=== PATIENT | female | born 1995 | race Caucasian/White ===

== ENCOUNTER → 2017-06-17 | Outpatient (CLI) | payer OTHER | END | disposition home or self-care (01) | LOC: C.LABSPEC 16:01 | PROVIDERS: ATTEND Physician Assistant | DX: Z01.419 Encounter for gynecological examination (general) (routine) without abnormal findings (principal) ==

== ENCOUNTER → 2017-06-17 | Outpatient (CLI) | payer OTHER | END | disposition home or self-care (01) | LOC: C.PAPS 16:39 | PROVIDERS: ATTEND Physician Assistant | DX: Z12.4 Encounter for screening for malignant neoplasm of cervix (principal); R87.615 Unsatisfactory cytologic smear of cervix ==

== ENCOUNTER 2022-08-04 21:19 | Inpatient (IN) ==
[2022-08-04] MEDS ORDERED: LIDOCAINE 1% LOCAL 20 ML VIAL INFIL PRN (21:52)
[2022-08-04] MEDS ORDERED: OXYTOCIN 30 UNITS/500 ML BAG IV PRN (21:52)
[2022-08-04 22:36] LABS: Hematocrit (blood only) 38.3 % (37.0-47.0); Hemoglobin 13.3 g/dl (12.0-16.0); Mean Corpuscular Hemoglobin 31.4 pg (25.0-34.0); Mean Corpuscular Hgb Conc 34.7 g/dL (32.0-36.0); Mean Corpuscular Volume 90.3 fL (80.0-100.0); Mean Platelet Volume 10.8 fL (9.4-12.4); Platelet Count 157 K/uL (130-400); RDW Standard Deviation 42.4 fL (36.4-46.3); Red Blood Count 4.24 M/uL (4.20-5.40); White Blood Count 11.42 K/ul (4.8-10.8)
[2022-08-05] MEDS: LACTATED RINGER'S 1,000 ML IV PRN ×2 (01:27→04:06)
[2022-08-05] MEDS ORDERED: BUPIVACAINE 0.25% PF 30 ML VIAL ONE (01:30)
[2022-08-05] MEDS ORDERED: ePHEDrine sulfate 50 MG/ML AMP ONE (01:30)
[2022-08-05] MEDS ORDERED: SODIUM CHLORIDE 0.9% PF INJ 10 ML VIAL ONE (01:30)
[2022-08-05] MEDS ORDERED: fentaNYL citrate PF 100 MCG/2 ML VIAL ONE (01:30)
[2022-08-05] MEDS ORDERED: LIDOCAINE 2%/EPINEPHRINE 1:200,000 20 ML PF ONE (01:31)
[2022-08-05] MEDS ORDERED: fentaNYL 2MCG/ML ROPIVACAINE 1.25MG/ML 100 ML BAG EPI ONE (01:31)
[2022-08-05] MEDS ORDERED: NALOXONE HCL 1 MG in SODIUM CHLORIDE 0.9% 1000ML 1,000 ML IV PRN (01:47)
[2022-08-05] MEDS ORDERED: NALOXONE HCL 0.4 MG/1 ML VIAL/CARP IV PRN (01:47)
[2022-08-05] MEDS ORDERED: ePHEDrine sulfate 50 MG/ML AMP IV PRN (01:47)
[2022-08-05] MEDS ORDERED: diphenhydrAMINE 50 MG/ML VIAL IV PRN (01:47)
[2022-08-05] MEDS ORDERED: NALBUPHINE HCL INJ 10 MG/ML AMP IV PRN (01:47)
[2022-08-05] MEDS ORDERED: ONDANSETRON INJ 2 MG/ML 2 ML VIAL IV PRN (01:47)
[2022-08-05] MEDS ORDERED: fentaNYL 2MCG/ML ROPIVACAINE 1.25MG/ML 100 ML BAG EPI PRN (01:47)
--- NOTE | 2022-08-05 01:47 | Anesthesiology Consultation ---
Date of Service August 05, 2022 Assessment & Plan ASA ASA2 Proposed Anesthesia Anesthesia Type: Labor Epidural Risk / Benefits Reviewed With: PT / POA / Parent / Guardian, Accepts Plan and Informed Consent Obtained History Height/Weight Height: 5 ft 6 in Weight: 74.843 kg Allergies Allergy/AdvReac Type Severity Reaction Status Date / Time latex Allergy Mild Rash Verified 08/02/22 15:32 Medications Home Medications Medication Instructions Recorded Confirmed Last Taken acetone (urine) test (Ketone Urine #50 ea 06/22/22 08/02/22 Unknown Test strips) blood sugar diagnostic (OneTouch #150 ea 06/22/22 08/02/22 Unknown Verio test strips) blood-glucose meter (OneTouch #1 ea 06/22/22 08/02/22 Unknown Verio Reflect Meter) lancets 33 gauge (OneTouch Delica #150 ea 06/22/22 08/02/22 Unknown Lancets) [id number]-[id number] 1 mg 1 tab PO DAILY 08/04/22 08/04/22 Unknown tablet Active Medications Generic Name Dose Route Start Last Admin Trade Name Freq PRN Reason Stop Dose Admin Lactated Ringer's 1,000 mls @ 125 mls/hr 08/04/22 21:52 08/05/22 02:06 Lr IV 08/06/22 21:51 125 mls/hr .Q8H PRN Infusion L&D Protocol Protocol Ropivacaine 100 ml 08/05/22 01:47 08/05/22 02:15 Fentanyl 2mcg/Ml Ropivacaine 1.25mg/Ml 100 Ml Bag EPI 08/06/22 01:46 100 ml PRN PRN Administration Pain R/T Labor Protocol Past Medical History Medical History Varicella vaccination Exercise / Class Metabolic Activity II 4-5 Yardwork/Stairs/Walk up hill Past Family History Family History Aunt Ovarian cancer Denies family history of Prostate cancer Breast cancer Colorectal cancer Past Surgical History Surgical History H/O wisdom tooth extraction Past Anesthesia History No Hx of Anesthesia Complications and No Family Hx of Anesthesia Complications History of PONV No Hx of PONV and No Hx of Motion Sickness Social History Smoking Status: Never smoker Hx Alcohol Use: No Hx Substance Use: No Review of Systems denies fever/cough/ colds/ chest pain/ SOB/ FRANCISCO JAVIER denies FRANCISCO JAVIER Physical Exam Vital Signs Last Vital Signs Temp 37.2 C 08/05/22 01:29 Pulse 69 08/05/22 02:19 Resp 18 08/05/22 01:29 BP 106/65 08/05/22 02:19 Pulse Ox 98 08/05/22 02:14 ENMT Mouth: no TMJ abnormality and no dentition abnormality Thyromental Distance: > or= 3.5 Finger Breadths Mallampati Class: II Neck neck extension not limited Respiratory normal respiratory effort; no respiratory distress Auscultation: lungs clear to auscultation bilaterally Cardiovascular Rate/Rhythm: regular rate and regular rhythm Neurologic moves all extremities Psychiatric Orientation: alert and oriented x 3 Testing Laboratory Results 08/04/22 22:17 08/05/22 08/04/22 00:47 21:55 POC Glucose 91 114 H
--- NOTE | 2022-08-05 03:19 | Labor Progress Brief Note ---
Date of Service August 05, 2022 Subjective Patient with SROM at home followed by onset of painful contractions. Initially planning NCB but has since elected for epidural and is now comfortable. Preg c/b A1GDM. Assessment & Plan (1) Normal labor: Plan: Making change spontaneously, now comfortable with epidural. Can continue expectant mgmt. Has diet controlled GDM but initial FSBG was OK, no further needed. Admission and Anticipated Discharge Date Admission Date: August 04, 2022 Physical Exam Genitourinary: Per RIAN Nicole has made change from 2cm initial exam to just now 5cm/70/-2 and LOF with meconium since arrival. FHT Cat 1 [place] irregular but evidently effective Results & Data Vital Signs (Past 12 Hours) Vital Signs Temp Pulse Resp BP Pulse Ox 08/05/22 03:09 74 99 08/05/22 03:04 88 99 08/05/22 03:01 60 116/69 08/05/22 02:59 76 97 08/05/22 02:54 69 97 08/05/22 02:49 78 98 08/05/22 02:46 65 111/63 08/05/22 02:44 76 97 08/05/22 02:39 77 98 08/05/22 02:35 18 08/05/22 02:35 98.6 F 18 08/05/22 02:34 75 97 08/05/22 02:20 18 08/05/22 02:20 18 08/05/22 02:30 18 08/05/22 02:30 18 08/05/22 02:15 18 08/05/22 02:15 18 08/05/22 02:29 84 104/61 98 08/05/22 02:27 78 105/60 08/05/22 02:25 75 18 100/58 L 08/05/22 02:24 73 96 08/05/22 02:23 75 104/64 08/05/22 02:21 78 97/60 L 08/05/22 02:19 97 08/05/22 02:19 77 08/05/22 02:19 69 106/65 08/05/22 02:17 71 103/62 08/05/22 02:14 65 115/74 98 08/05/22 02:12 66 119/73 08/05/22 02:09 85 96 08/05/22 02:04 88 98 08/05/22 01:59 106 H 98 08/05/22 01:29 18 08/05/22 01:29 99.0 F 18 08/04/22 23:27 18 08/04/22 23:27 97.9 F 18 08/04/22 21:54 18 08/04/22 21:54 98.8 F 18 08/04/22 21:28 72 119/74 08/04/22 21:28 18 Coding Level of Care Code None Diagnoses Normal labor O80; Z37.9
[2022-08-05] MEDS ORDERED: OXYTOCIN 30 UNITS/500 ML BAG IV PRN ×2 (07:06→10:21)
--- NOTE | 2022-08-05 07:28 | Labor Progress Brief Note ---
Date of Service August 05, 2022 Subjective Comfortable with epidural. Assessment & Plan (1) Normal labor: Plan: Augment with pitocin as contractions have spaced further apart. Although cvx change still occurring, 2nd stage will be very inefficient with ctx this rare. Pt agreeable. Admission and Anticipated Discharge Date Admission Date: August 04, 2022 Physical Exam Genitourinary: Recent RN exam, so not repeated by MD at this time, but 7cm per L. Bonnie LOF continues with [facility] FHT Cat 1 [place] Q6-7 Results & Data Vital Signs (Past 12 Hours) Vital Signs Temp Pulse Resp BP Pulse Ox 08/05/22 07:19 72 96 08/05/22 07:17 77 94 08/05/22 07:14 66 96 08/05/22 07:15 62 102/50 L 08/05/22 07:00 98.6 F 08/05/22 07:09 71 96 08/05/22 07:04 77 94 08/05/22 07:01 65 94 08/05/22 06:59 61 110/66 96 08/05/22 06:56 65 94 08/05/22 06:54 63 95 08/05/22 06:49 62 94 08/05/22 06:44 95 08/05/22 06:44 66 08/05/22 06:44 65 107/63 94 08/05/22 06:39 74 95 08/05/22 06:34 64 95 08/05/22 06:32 82 94 08/05/22 06:29 66 110/61 95 08/05/22 06:25 73 93 08/05/22 06:24 71 95 08/05/22 06:19 76 95 08/05/22 06:14 77 108/55 L 95 08/05/22 06:09 75 94 08/05/22 06:04 96 08/05/22 06:04 70 08/05/22 06:04 73 94 08/05/22 05:59 75 110/60 95 08/05/22 05:54 82 95 08/05/22 05:55 80 94 08/05/22 05:49 77 95 08/05/22 05:44 73 96 08/05/22 05:45 73 123/68 08/05/22 05:39 81 96 08/05/22 05:34 73 96 08/05/22 05:29 82 105/65 96 08/05/22 05:24 85 95 08/05/22 05:19 80 95 08/05/22 05:14 83 106/64 95 08/05/22 05:13 83 94 08/05/22 05:09 81 95 08/05/22 04:45 18 08/05/22 04:45 98.8 F 18 08/05/22 05:04 84 95 08/05/22 05:01 72 18 110/67 08/05/22 04:59 77 95 08/05/22 04:54 76 97 08/05/22 04:49 78 96 08/05/22 04:44 81 103/66 95 08/05/22 04:39 86 95 08/05/22 04:34 74 95 08/05/22 04:29 75 96 08/05/22 04:30 74 108/70 08/05/22 04:24 74 96 08/05/22 04:19 79 97 08/05/22 04:14 86 103/68 96 08/05/22 04:09 80 96 08/05/22 04:04 92 H 98 08/05/22 04:01 77 101/67 08/05/22 03:59 70 98 08/05/22 03:54 84 98 08/05/22 03:49 92 H 98 08/05/22 03:47 93 H 105/59 L 08/05/22 03:44 79 98 08/05/22 03:39 68 99 08/05/22 03:34 85 98 08/05/22 03:29 98 08/05/22 03:29 81 08/05/22 03:29 82 105/64 08/05/22 03:24 83 99 08/05/22 03:19 84 100 08/05/22 03:14 92 H 100 08/05/22 03:15 96 H 104/64 08/05/22 03:09 74 99 08/05/22 03:04 88 99 08/05/22 03:01 60 116/69 08/05/22 02:59 76 97 08/05/22 02:54 69 97 08/05/22 02:49 78 98 08/05/22 02:46 65 111/63 08/05/22 02:44 76 97 08/05/22 02:39 77 98 04/16/23 02:35 18 08/05/22 02:35 98.6 F 18 08/05/22 02:34 75 97 08/05/22 02:20 18 08/05/22 02:20 18 08/05/22 02:30 18 08/05/22 02:30 18 08/05/22 02:15 18 08/05/22 02:15 18 08/05/22 02:29 84 104/61 98 08/05/22 02:27 78 105/60 08/05/22 02:25 75 18 100/58 L 08/05/22 02:24 73 96 08/05/22 02:23 75 104/64 08/05/22 02:21 78 97/60 L 08/05/22 02:19 97 08/05/22 02:19 77 08/05/22 02:19 69 106/65 08/05/22 02:17 71 103/62 08/05/22 02:14 65 115/74 98 08/05/22 02:12 66 119/73 08/05/22 02:09 85 96 08/05/22 02:04 88 98 08/05/22 01:59 106 H 98 08/05/22 01:29 18 08/05/22 01:29 99.0 F 18 08/04/22 23:27 18 08/04/22 23:27 97.9 F 18 08/04/22 21:54 18 08/04/22 21:54 98.8 F 18 08/04/22 21:28 72 119/74 08/04/22 21:28 18 Coding Level of Care Code None Diagnoses Normal labor O80; Z37.9
--- NOTE | 2022-08-05 09:27 | Labor Progress Brief Note ---
Date of Service August 05, 2022 Subjective Feeling pressure. FHT Cat 1 [place] Q 2-3 SVE 10/100/+1 Will start pushing. Assessment & Plan Admission and Anticipated Discharge Date Admission Date: August 04, 2022 Results & Data Vital Signs (Past 12 Hours) Vital Signs Temp Pulse Resp BP Pulse Ox 08/05/22 09:24 92 H 98 08/05/22 09:19 79 97 08/05/22 09:15 85 122/72 08/05/22 09:14 71 99 08/05/22 09:09 66 99 08/05/22 09:04 78 100 08/05/22 09:00 67 110/65 08/05/22 08:59 65 99 08/05/22 08:54 67 100 08/05/22 08:49 73 99 08/05/22 08:46 71 120/69 08/05/22 08:44 67 99 08/05/22 08:39 83 99 08/05/22 08:15 18 08/05/22 08:15 18 08/05/22 08:34 65 98 08/05/22 08:29 97 08/05/22 08:29 61 08/05/22 08:29 60 106/64 08/05/22 08:24 64 96 08/05/22 08:25 80 94 08/05/22 08:19 72 96 08/05/22 08:14 61 109/67 95 08/05/22 08:09 72 95 08/05/22 08:04 65 95 08/05/22 08:00 58 L 18 112/66 08/05/22 07:59 67 95 08/05/22 07:54 59 L 97 08/05/22 07:49 59 L 96 08/05/22 07:44 62 96 08/05/22 07:45 59 L 110/61 08/05/22 07:39 60 96 08/05/22 07:34 63 95 08/05/22 07:30 64 112/65 08/05/22 07:29 63 95 08/05/22 07:24 69 96 08/05/22 07:19 72 96 08/05/22 07:17 77 94 08/05/22 07:14 66 96 08/05/22 07:15 62 102/50 L 08/05/22 07:00 37.0 C 08/05/22 07:09 71 96 08/05/22 07:04 77 94 08/05/22 07:01 65 94 08/05/22 06:59 61 110/66 96 08/05/22 06:56 65 94 08/05/22 06:54 63 95 08/05/22 06:49 62 94 08/05/22 06:44 95 08/05/22 06:44 66 08/05/22 06:44 65 107/63 94 08/05/22 06:39 74 95 08/05/22 06:34 64 95 08/05/22 06:32 82 94 08/05/22 06:29 66 110/61 95 08/05/22 06:25 73 93 08/05/22 06:24 71 95 08/05/22 06:19 76 95 08/05/22 06:14 77 108/55 L 95 08/05/22 06:09 75 94 08/05/22 06:04 96 08/05/22 06:04 70 08/05/22 06:04 73 94 08/05/22 05:59 75 110/60 95 08/05/22 05:54 82 95 08/05/22 05:55 80 94 08/05/22 05:49 77 95 08/05/22 05:44 73 96 08/05/22 05:45 73 123/68 08/05/22 05:39 81 96 08/05/22 05:34 73 96 08/05/22 05:29 82 105/65 96 08/05/22 05:24 85 95 08/05/22 05:19 80 95 08/05/22 05:14 83 106/64 95 08/05/22 05:13 83 94 08/05/22 05:09 81 95 08/05/22 04:45 18 08/05/22 04:45 37.1 C 18 08/05/22 05:04 84 95 08/05/22 05:01 72 18 110/67 08/05/22 04:59 77 95 08/05/22 04:54 76 97 08/05/22 04:49 78 96 08/05/22 04:44 81 103/66 95 08/05/22 04:39 86 95 08/05/22 04:34 74 95 08/05/22 04:29 75 96 08/05/22 04:30 74 108/70 08/05/22 04:24 74 96 08/05/22 04:19 79 97 08/05/22 04:14 86 103/68 96 08/05/22 04:09 80 96 08/05/22 04:04 92 H 98 08/05/22 04:01 77 101/67 08/05/22 03:59 70 98 08/05/22 03:54 84 98 08/05/22 03:49 92 H 98 08/05/22 03:47 93 H 105/59 L 08/05/22 03:44 79 98 08/05/22 03:39 68 99 08/05/22 03:34 85 98 08/05/22 03:29 98 08/05/22 03:29 81 08/05/22 03:29 82 105/64 08/05/22 03:24 83 99 08/05/22 03:19 84 100 08/05/22 03:14 92 H 100 08/05/22 03:15 96 H 104/64 08/05/22 03:09 74 99 08/05/22 03:04 88 99 08/05/22 03:01 60 116/69 08/05/22 02:59 76 97 08/05/22 02:54 69 97 08/05/22 02:49 78 98 08/05/22 02:46 65 111/63 08/05/22 02:44 76 97 08/05/22 02:39 77 98 08/05/22 02:35 18 08/05/22 02:35 37.0 C 18 08/05/22 02:34 75 97 08/05/22 02:20 18 08/05/22 02:20 18 08/05/22 02:30 18 08/05/22 02:30 18 08/05/22 02:15 18 08/05/22 02:15 18 08/05/22 02:29 84 104/61 98 08/05/22 02:27 78 105/60 08/05/22 02:25 75 18 100/58 L 08/05/22 02:24 73 96 08/05/22 02:23 75 104/64 08/05/22 02:21 78 97/60 L 08/05/22 02:19 97 08/05/22 02:19 77 08/05/22 02:19 69 106/65 08/05/22 02:17 71 103/62 08/05/22 02:14 65 115/74 98 08/05/22 02:12 66 119/73 08/05/22 02:09 85 96 08/05/22 02:04 88 98 08/05/22 01:59 106 H 98 08/05/22 01:29 18 08/05/22 01:29 37.2 C 18 08/04/22 23:27 18 08/04/22 23:27 36.6 C 18 08/04/22 21:54 18 08/04/22 21:54 37.1 C 18 08/04/22 21:28 72 119/74 08/04/22 21:28 18 Coding Level of Care Code None Diagnoses
[2022-08-05] MEDS ORDERED: ACETAMINOPHEN 325 MG TAB PO PRN (10:21)
[2022-08-05] MEDS ORDERED: HYDROCORTISONE ACETATE 25 MG SUPP PR PRN (10:21)
[2022-08-05] MEDS ORDERED: BENZOCAINE 20% AER SPR 82.5 GM CAN EXT PRN (10:21)
[2022-08-05] MEDS ORDERED: DIPHTHERIA/TETANUS/PERTUSSIS 0.5mL SYR/VIAL (Age 7+yrs) IM ONE (10:21)
[2022-08-05] MEDS ORDERED: bisacodyL 10 MG SUPP PR PRN (10:21)
[2022-08-05] MEDS ORDERED: oxyCODONE/ACETAMINOPHEN 5mg/325mg TAB PO PRN (10:21)
--- NOTE | 2022-08-05 10:22 | Delivery Summary ---
Vaginal Delivery Summary Date of Service August 05, 2022 Vaginal Delivery Summary and 2nd Degree LAC Vaginal Delivery Summary: Pre-delivery diagnoses: 26yo @ 38 6/7, spontaneous labor, GDMA1 Post-delivery diagnoses: same Procedure: spontaneous vaginal delivery, repair of 2nd degree perineal laceration Surgeon: Kae Loyola DO Complications: none Findings: Viable male . Apgars: . Weight pending, please see nursery records. Estimated blood loss: 300ml Description of delivery: The patient progressed to complete with epidural anesthesia. She then began to push. She spontaneously vaginally delivered a viable from the cephalic presentation. The head delivered in LAVERNE position. The anterior shoulder delivered, followed by the posterior shoulder, followed by the body. The baby was placed on mother's abdomen and a spontaneous cry was heard. Delayed cord clamping was employed, and the cord was doubly clamped and cut. Cord blood was obtained. The placenta was delivered spontaneously intact with a 3-vessel cord. The uterus and vagina were swept of clots and debris. IV pitocin was given. The uterus became firm. The cervix, vagina, and perineum were inspected and 2nd degree laceration was noted and repaired with 3-0 vicryl in standard fashion. Excellent hemostasis was observed. The mother and baby are recovering in stable and good condition in the room. Sponge, needle and instrument counts were correct x 2. DO [facility]IT [facility] Vag[facility] Delivery Charge Delivery Type Details: and 2nd Degree LAC
[2022-08-05] MEDS: DOCUSATE SODIUM 100 MG CAP PO SCH (20:13)
[2022-08-06] MEDS: IBUPROFEN 600 MG TAB PO PRN ×4 (03:13→21:45)
--- NOTE | 2022-08-06 06:35 | Obstetrical Progress Note ---
Date of Service August 06, 2022 Assessment & Plan (1) Normal labor: (2) Gestational diabetes mellitus (GDM) affecting , antepartum: (3) Encounter for supervision of normal intrauterine in primigravida, antepartum: Xochitl Parra is a 26 y/o female who is PPD #1 following delivery at 38 6/7 weeks. -Meeting all milestones -Vital signs reviewed and WNL, Repeat H&H this a.m. pending -A+/GBS negative/Rubella immune -Follow up in 6 weeks for follow up appointment -Continue routine care Admission and Anticipated Discharge Date Admission Date: August 04, 2022 Supervising Physician Co-Signing Physician Notes Resident Physician Supervision Note: I interviewed and examined the patient. Discussed with Dr. Newton and agree with findings and plan as documented in the note. Any exceptions or clarifications are listed here: PPD#1 doing well. Anticipate DC home tomorrow. Documented By: Kae Loyola, DO Subjective Aida is a 26 y/o female who is PPD #1 following delivery at 38 6/7 weeks. Her was complicated by GDMA1. She reports feeling well overall this morning. Notes abdominal cramping but pain is responding to Motrin. Voiding without issue and endorses passing gas. Tolerating meals overnight and able to ambulate some. States that her vaginal bleeding has not changed significantly, although has not checked yet this morning. Currently breast feeding. Review of Systems Constitutional: no fever, no chills and no sweats Respiratory: no cough, no dyspnea and no wheezing Cardiovascular: no chest pain, no palpitations and no calf pain Genitourinary: no dysuria Neurologic: no headache(s) Physical Exam Constitutional: WD/WN, vitals as above no acute distress Respiratory: no respiratory distress Auscultation: lungs clear to auscultation bilaterally; no rales, no rhonchi and no wheezes Cardiovascular: RRR, no murmur, no edema Extremities: no calf tenderness and no edema Negative Malik's sign bilaterally. Gastrointestinal (Abdomen): Inspection/Auscultation: normal bowel sounds Genitourinary: Uterine fundus firm, palpable below the umbilicus. Results & Data Vital Signs (Past 12 Hours) Vital Signs Temp Pulse Resp BP O2 Del Method 08/06/22 03:06 36.7 C 85 16 104/70 Room Air 08/05/22 23:11 36.5 C 76 16 113/78 Room Air 08/05/22 20:07 36.8 C 93 H 16 107/71 Room Air Resident Activity Tracking Resident Involvement: Resident Care Provided Care Provided: OB Delivery
[2022-08-06 07:46] LABS: Hematocrit (blood only) 29.9 % (37.0-47.0); Hemoglobin 10.2 g/dl (12.0-16.0)
[2022-08-06] MEDS: DOCUSATE SODIUM 100 MG CAP PO SCH ×2 (07:58→21:45)
[2022-08-06] MEDS: PRENATAL VITAMIN 1 TAB PO SCH (07:58)
[2022-08-06] MEDS ORDERED: bisacodyL 5 MG TABEC PO SCH (20:00)
--- NOTE | 2022-08-07 07:41 | Obstetrical Progress Note ---
Date of Service August 07, 2022 Assessment & Plan (1) Normal labor: (2) Gestational diabetes mellitus (GDM) affecting , antepartum: (3) Encounter for supervision of normal intrauterine in primigravida, antepartum: Plan Aida is a 26 y/o female who is PPD #2 following delivery at 38 6/7 weeks. -Meeting all milestones -Vital signs reviewed and WNL, Hemoglobin stable -A+/GBS negative/Rubella immune -Follow up in 6 weeks for follow up appointment -Continue routine care -Anticipate discharge to [facility] later today -Encourage working with political consultant Admission and Anticipated Discharge Date Admission Date: August 04, 2022 Supervising Physician Co-Signing Physician Notes Patient seen and evaluated with resident and agree plan. Stable for discharge today Antonio Parra is a 26 y/o female who is PPD #2 following delivery at 38 6/7 weeks. Her was complicated by GDMA1. She reports feeling okay this morning, states she is having difficulty with . Notes abdominal cr amping but pain is responding to Motrin. Voiding without issue and endorses passing gas. Tolerating meals overnight and able to ambulate some. Plans to work more with political consultant today. Review of Systems Constitutional: no fever, no chills and no sweats Respiratory: no cough, no dyspnea and no wheezing Cardiovascular: no chest pain, no palpitations and no calf pain Genitourinary: no dysuria Neurologic: no headache(s) Physical Exam Constitutional: WD/WN, vitals as above no acute distress Respiratory: no respiratory distress Auscultation: lungs clear to auscultation bilaterally; no rales, no rhonchi and no wheezes Cardiovascular: RRR, no murmur, no edema Extremities: no calf tenderness and no edema Gastrointestinal (Abdomen): Inspection/Auscultation: normal bowel sounds Genitourinary: Uterine fundus palpable below umbilicus Results & Data Vital Signs (Past 12 Hours) Vital Signs Temp Pulse Resp BP Pulse Ox O2 Del Method 08/07/22 00:39 36.9 C 77 16 104/75 Room Air 08/06/22 20:00 36.7 C 76 16 106/70 99 Room Air Resident Activity Tracking Resident Involvement: Resident Care Provided Care Provided: OB Delivery
[2022-08-07] MEDS: PRENATAL VITAMIN 1 TAB PO SCH (07:57)
[2022-08-07] MEDS: DOCUSATE SODIUM 100 MG CAP PO SCH ×2 (07:57→21:04)
[2022-08-07] MEDS: IBUPROFEN 600 MG TAB PO PRN ×3 (07:59→21:04)
== END 2022-08-07 21:30 | disposition home or self-care (01) | DRG 807 ==
LOC: OPB 21:19 → 4S1 21:20 → 4E2 08-05 15:18
DX: O24.420 Gestational diabetes mellitus in childbirth, diet controlled; O70.1 Second degree perineal laceration during delivery; Z37.0 Single live birth; Z3A.38 38 weeks gestation of pregnancy